=== PATIENT | male | born 1960 | race African-American/Black ===

== ENCOUNTER 2019-08-06 13:08 | Emergency (ER) | payer SELFPAY ==
[~2019-08-06 13:08] MED LIST: Iopamidol 370 76% 100 ML VIAL ONE
[2019-08-06] MEDS ORDERED: Ketorolac Tromethamine 30 MG/ML VIAL ONE (14:31)
[2019-08-06] MEDS ORDERED: Mag-Al Plus 1200 MG/1200 MG/120 MG/30 ML UDCUP ONE (14:31)
[2019-08-06] MEDS ORDERED: Famotidine In NaCl 20 mg/50 ml Premix Bag ONE (14:32)
[2019-08-06] MEDS ORDERED: Lidocaine Viscous Sol 2% 15 ml UD Cup ONE (14:32)
[2019-08-06 14:50] LABS: #Basophils 0.1 thou/uL (0.0-0.2); #Eosinphils 0.4 thou/uL (0.0-0.7); #Lymphocytes 2.4 thou/uL (1.20-3.40); #Monocytes 0.5 thou/uL (0.11-0.59); #Neutrophils 7.7 thou/uL (1.40-6.50); %Basophils 0.7 % (0.0-1.0); %Eosinophils 3.6 % (0.0-10.0); %Monocytes 4.2 % (0.0-10.0); %Neutrophils 69.5 % (42.0-75.0); Hemoglobin 12.9 g/dL (14.0-18.0); Mean Corpuscular HGB CONC 31.2 g/dL (32.0-36.0); Mean Corpuscular Hemoglobin 26.2 pg (27.0-31.0); Mean Corpuscular Volume 83.8 fL (78.0-98.0); Mean Platelet Volume 6.9 fL (7.4-10.4); Platelet Count 349 thou/uL (130-400); RBC Distribution Width 13.5 % (11.5-14.5); Red Blood Cell (RBC) Count 4.92 mill/uL (4.70-6.10); White Blood Cell (WBC) Count 11.1 thou/uL (4.8-10.8)
[2019-08-06 15:06] LABS: ALT (SGPT) 20 U/L (8-55); AST (SGOT) 18 U/L (5-34); Albumin 4.1 g/dL (3.5-5.0); Alkaline Phosphatase 96 U/L (40-110); Anion Gap 14 mmol/L (10-20); BUN (Urea Nitrogen) 12 mg/dL (8.4-25.7); Bilirubin, Total 0.7 mg/dL (0.2-1.2); Calc. Creatinine Clearance 0 mL/min (70-130); Calcium 9.1 mg/dL (7.8-10.44); Carbon Dioxide 23 mmol/L (22-29); Chloride 107 mmol/L (98-107); Estimated GFR-MDRD Greater than 90; Globulin 3.7 g/dL (2.4-3.5); Glucose 124 mg/dL (70-105); Lipase 25 U/L (8-78); Potassium 3.6 mmol/L (3.5-5.1); Protein, Total 7.8 g/dL (6.0-8.3); Sodium 140 mmol/L (136-145)
--- NOTE | 2019-08-06 15:58 | CT ---
CT OF THE ABDOMEN AND PELVIS WITH IV CONTRAST INDICATION: Abdominal pain and history of brain cancer COMPARISON: None FINDINGS: ABDOMEN: Lung bases: Clear Liver: No focal lesion. Gallbladder: Normal appearing. Pancreas: Normal. Adrenal glands: Normal. Spleen: Normal. Kidneys and ureters: Normal. No hydronephrosis. Vasculature: Normal. Lymph nodes:There are enlarged lymph nodes within the upper abdomen. One lymph node, adjacent to the pancreatic body superiorly, on image 23 of series 2, measures 1.4 cm. An additional in the gastrohepatic ligament region measures 1 cm on image 21 of series 2. There is an additional peripancr eatic enlarged lymph node on image 25 of series 2 measuring 1.4 cm. There is a large portacaval lymph node measuring 1.6 cm. Free fluid in abdomen:No free fluid is evident. PELVIS: Small and large bowel: Normal Appendix:Normal Bladder: Normal. Rectal and perirectal soft tissues:Normal. Reproductive structures: Normal. Free fluid in pelvis: No free fluid is evident. Lymphadenopathy pelvis: No lymphadenopathy is evident. Osseous structures: No acute osseous abnormality. No destructive osteolytic or osteoblastic lesion i s identified. There is scattered degenerative and osteoarthritic changes. Soft tissues:There is a fat-containing umbilicus hernia IMPRESSION: 1. Nonspecific enlarged lymph nodes of the upper abdomen. 2. No additional acute abnormality.
== END 2019-08-06 16:17 | disposition home or self-care (01) ==
LOC: MADERS 13:08
DX: R59.0 Localized enlarged lymph nodes (principal); R10.9 Unspecified abdominal pain
CPT/HCPCS: 74177; 80053; 83690; 85025; 93005; 96365; 96375; J1885; Q9967

== ENCOUNTER 2021-12-25 21:28 | Emergency (ER) | payer BC, SELFPAY ==
[2021-12-25] MEDS ORDERED: HYDROcodone/Acetaminophen 5/325 mg Tablet ONE (22:30)
== END 2021-12-25 22:35 | disposition home or self-care (01) ==
LOC: MADERS 21:28
DX: K02.9 Dental caries, unspecified (principal); Z85.841 Personal history of malignant neoplasm of brain
CPT/HCPCS: 99282

== ENCOUNTER 2022-08-09 11:21 | Emergency (ER) | payer BC, SELFPAY | END 2022-08-09 12:00 | disposition home or self-care (01) | LOC: MADERS 11:21 | DX: K08.89 Other specified disorders of teeth and supporting structures (principal) | CPT/HCPCS: 99282 ==

== ENCOUNTER 2022-11-22 17:36 | Emergency (ER) | payer OTHER, SELFPAY ==
[2022-11-22] MEDS ORDERED: Lactated Ringer's 1,000 ML ONE (18:35)
[2022-11-22] MEDS ORDERED: Lidocaine Viscous Sol 2% 15 ml UD Cup ONE (18:35)
[2022-11-22] MEDS ORDERED: Mag-Al Plus 1200 MG/1200 MG/120 MG/30 ML UDCUP ONE (18:35)
[2022-11-22] MEDS ORDERED: Famotidine/PF 20 mg/2ml Vial ONE (18:35)
[2022-11-22 18:36] LABS: #Basophils 0.1 thou/uL (0.0-0.2); #Eosinphils 0.3 thou/uL (0.0-0.7); #Lymphocytes 2.4 thou/uL (1.20-3.40); #Monocytes 0.5 thou/uL (0.11-0.59); %Basophils 0.8 % (0.0-1.0); %Eosinophils 3.4 % (0.0-10.0); %Lymphocytes 25.5 % (21.0-51.0); %Monocytes 5.7 % (0.0-10.0); %Neutrophils 64.6 % (42.0-75.0); Hemoglobin 13.3 g/dL (14.0-18.0); Mean Corpuscular HGB CONC 32.2 g/dL (32.0-36.0); Mean Corpuscular Hemoglobin 27.3 pg (27.0-31.0); Mean Corpuscular Volume 84.8 fl (78.0-98.0); Mean Platelet Volume 8.7 fL (7.4-10.4); Platelet Count 310 10x3/uL (130-400); RBC Distribution Width 13.9 % (11.5-14.5); Red Blood Cell (RBC) Count 4.88 mill/uL (4.70-6.10); White Blood Cell (WBC) Count 9.3 10x3/uL (4.8-10.8)
[2022-11-22 18:52] LABS: ALT (SGPT) 18 U/L (8-55); AST (SGOT) 17 U/L (5-34); Albumin 4.2 g/dL (3.5-5.0); Alkaline Phosphatase 96 U/L (40-110); Anion Gap 12 mmol/L (10-20); BUN (Urea Nitrogen) 7 mg/dL (8.4-25.7); Bilirubin, Total 0.7 mg/dL (0.2-1.2); Calc. Creatinine Clearance 0 mL/min (70-130); Calcium 9.7 mg/dL (7.8-10.44); Carbon Dioxide 25 mmol/L (22-29); Chloride 106 mmol/L (98-107); Estimated GFR 86; Globulin 3.5 g/dL (2.4-3.5); Glucose 93 mg/dL (70-105); Lipase 15 U/L (8-78); Magnesium 1.9 mg/dL (1.6-2.6); Potassium 3.9 mmol/L (3.5-5.1); Protein, Total 7.7 g/dL (6.0-8.3); Sodium 139 mmol/L (136-145)
[2022-11-22 19:01] LABS: Bilirubin Negative (Negative); Blood, Urine Negative (Negative); Clarity Clear (Clear); Glucose, Urine (Dipstick) Negative (Negative); Ketone, Urine Negative (Negative); Leukocyte Negative (Negative); Nitrite Positive (Negative); Protein, Urine (Dipstick) Negative (Neg-Trace); Specific Gravity, Urine 1.015 (1.005-1.030); Urobilinogen 0.2 mg/dL (Less than 2); pH, Urine 5.5 (5.0-9.0)
[2022-11-22 19:05] LABS: Bacteria/HPF Rare-Few HPF (None Seen); CAUTI Indications for Culture Pelvic or flank pain; RBC/HPF None Seen HPF (0-3); Squamous Epithelial 0-3 HPF (0-3); WBC/HPF 0-3 HPF (0-3)
[2022-11-22 19:06] LABS: Mucous/LPF Few LPF (<2+); Urine Culture Reflex No No
[2022-11-22] MEDS ORDERED: Ondansetron PF 4 MG/2 ML Vial ONE (20:11)
== END 2022-11-22 21:29 | disposition home or self-care (01) ==
LOC: MADERS 17:36
DX: R10.13 Epigastric pain (principal); K02.9 Dental caries, unspecified; K04.7 Periapical abscess without sinus
CPT/HCPCS: 74177; 80053; 81001; 83605; 83690; 83735; 84484; 85025; 93005; 94760; 96374; 96375; J2405; J7120; Q9967; S0028

== ENCOUNTER 2023-03-12 17:49 | Emergency (ER) | payer OTHER ==
[2023-03-12 18:29] LABS: Bilirubin Negative (Negative); Blood, Urine Negative (Negative); Clarity Clear (Clear); Glucose, Urine (Dipstick) Negative (Negative); Ketone, Urine Negative (Negative); Leukocyte Negative (Negative); Nitrite Negative (Negative); Protein, Urine (Dipstick) Negative (Neg-Trace); Urobilinogen 0.2 mg/dL (Less than 2); pH, Urine 6.5 (5.0-9.0)
[2023-03-12 18:36] LABS: CAUTI Indications for Culture Pelvic or flank pain; RBC/HPF None Seen HPF (0-3); Squamous Epithelial 0-3 HPF (0-3); WBC/HPF 0-3 HPF (0-3)
[2023-03-12 18:37] LABS: Bacteria/HPF None Seen HPF (None Seen)
[2023-03-12 18:38] LABS: Urine Culture Reflex No No
[2023-03-12 18:54] LABS: #Basophils 0.1 thou/uL (0.0-0.2); #Eosinphils 0.2 thou/uL (0.0-0.7); #Lymphocytes 2.7 thou/uL (1.20-3.40); #Monocytes 0.8 thou/uL (0.11-0.59); #Neutrophils 7.4 thou/uL (1.40-6.50); %Basophils 0.7 % (0.0-1.0); %Eosinophils 2.2 % (0.0-10.0); %Lymphocytes 23.9 % (21.0-51.0); %Monocytes 6.8 % (0.0-10.0); %Neutrophils 66.4 % (42.0-75.0); Hematocrit 43.6 % (42.0-52.0); Mean Corpuscular Hemoglobin 27.3 pg (27.0-31.0); Mean Corpuscular Volume 85.1 fl (78.0-98.0); Mean Platelet Volume 8.8 fL (7.4-10.4); Platelet Count 321 10x3/uL (130-400); RBC Distribution Width 13.7 % (11.5-14.5); Red Blood Cell (RBC) Count 5.12 mill/uL (4.70-6.10); White Blood Cell (WBC) Count 11.2 10x3/uL (4.8-10.8)
[2023-03-12] MEDS ORDERED: Lidocaine Viscous Sol 2% 15 ml UD Cup ONE (19:01)
[2023-03-12] MEDS ORDERED: Mag-Al Plus 1200 MG/1200 MG/120 MG/30 ML UDCUP ONE (19:01)
[2023-03-12] MEDS ORDERED: Pantoprazole 40 MG VIAL ONE (19:01)
[2023-03-12] MEDS ORDERED: Ondansetron PF 4 MG/2 ML Vial ONE (19:01)
[2023-03-12 19:06] LABS: ALT (SGPT) 16 U/L (8-55); AST (SGOT) 16 U/L (5-34); Albumin 4.3 g/dL (3.4-4.8); Alkaline Phosphatase 87 U/L (40-110); Anion Gap 15 mmol/L (10-20); BUN (Urea Nitrogen) 10 mg/dL (8.4-25.7); Bilirubin, Total 0.9 mg/dL (0.2-1.2); Calc. Creatinine Clearance 0 mL/min (70-130); Calcium 9.4 mg/dL (7.8-10.44); Carbon Dioxide 22 mmol/L (23-31); Chloride 106 mmol/L (98-107); Estimated GFR 81; Globulin 3.8 g/dL (2.4-3.5); Glucose 91 mg/dL (80-115); Lipase 14 U/L (8-78); Potassium 3.7 mmol/L (3.5-5.1); Protein, Total 8.1 g/dL (5.8-8.1); Sodium 139 mmol/L (136-145)
== END 2023-03-12 20:57 | disposition home or self-care (01) ==
LOC: MADERS 17:49
DX: K29.00 Acute gastritis without bleeding (principal)
CPT/HCPCS: 74177; 80053; 81001; 82274; 83690; 85025; 96374; 96375; C9113; J2405; Q9967